=== PATIENT | female | born 1935 | race Caucasian/White ===

== ENCOUNTER 2019-01-18 11:51 | Emergency (ER) | payer MEDICARE, OTHER ==
[~2019-01-18] VITALS: Ht 160 cm; Wt 75.0 kg
[2019-01-18 11:56] VITALS: TEMP 96.6
[2019-01-18] MEDS ORDERED: CELEXA10 MG PO (12:08)
[2019-01-18] MEDS ORDERED: CELEBREX 1100 MG/CAP PO (12:09)
[2019-01-18] MEDS ORDERED: LIPITOR 80MG80 MG (12:09)
[2019-01-18 12:33] LABS: BASO # 0.1 (0.0-0.2); BASO % 0.3 % (0.0-2.0); EOS # 0.3 (0.0-0.7); EOS % 1.7 % (0-4.0); GRAN # 10.4 (1.4-6.5); GRAN % 72.8 % (42.2-75.2); HEMATOCRIT 43.1 % (37.0-47.0); HEMOGLOBIN 14.5 g/dl (12.5-16.0); LYMPH # 2.2 (1.2-3.4); LYMPH % 15.5 % (20.0-51.0); MEAN CELL VOLUME 90 fl (80.0-100.0); MEAN CORPUSCULAR HEMOGLOBIN 30 pg (27.0-31.0); MEAN CORPUSCULAR HGB CONC 34 g/dl (33.0-37.0); MEAN PLATELET VOLUME 8.9 fl (7.4-10.4); MONO # 1.4 (0.1-0.6); MONO % 9.4 % (1.7-9.3); PLATELET COUNT 302 K/mm3 (130-400); RED BLOOD COUNT 4.77 M/mm3 (4.10-5.30)
[2019-01-18 12:34] LABS: COLLECTION METHOD CLEAN CATCH
[2019-01-18 12:42] LABS: MUCOUS Present /lpf; PH 6 (5-8); URINE APPEARANCE Clear; URINE BACTERIA None Seen /hpf; URINE BILIRUBIN Negative (NEGATIVE); URINE BLOOD 1+ (NEGATIVE); URINE COLOR Yellow; URINE GLUCOSE Negative (NEGATIVE); URINE KETONE Negative (NEGATIVE); URINE LEUKOCYTE ESTERASE 1+ (NEGATIVE); URINE NITRATE Negative (NEGATIVE); URINE PROTEIN(semi-quant) Negative (NEGATIVE); URINE RBC 0-2 /hpf; URINE UROBILINOGEN Negative (NEGATIVE)
[2019-01-18 12:46] LABS: ALBUMIN 4.4 gm/dL (3.5-5.0); BILIRUBIN,TOTAL 1.1 mg/dL (0.0-1.0); C-REACTIVE PROTEIN 7.1 mg/dL (0.0-0.9); CALCIUM 9.4 mg/dL (8.4-10.2); CREATININE, serum 0.79 (0.52-1.25); POTASSIUM 4.1 mmol/L (3.4-5.0); TOTAL PROTEIN 7.8 gm/dL (6.4-8.2)
[2019-01-18] MEDS ORDERED: FLAGYL500 MG PO (14:08)
[2019-01-18] MEDS ORDERED: CIPRO 500MG TA500 MG PO (14:08)
[2019-01-18] MEDS ORDERED: ULTRAM 50MG TAB50 MG PO (14:16)
[2019-01-18 14:20] VITALS: BP 148/83; PULSE 64
== END 2019-01-18 14:22 | disposition home or self-care (01) ==
LOC: COL.ER 11:51
PROVIDERS: Emergency Medicine
DX: K52.9 Noninfective gastroenteritis and colitis, unspecified (principal); E78.5 Hyperlipidemia, unspecified
CPT/HCPCS: J7030; Q9967

== ENCOUNTER → 2020-06-02 | Outpatient (CLI) | payer MEDICARE, OTHER ==
[~2020-06-02] MED LIST: CELEBREX 1100 MG/CAP PO; CELEXA10 MG PO; CIPRO 500MG TA500 MG PO; FLAGYL500 MG PO; LIPITOR 80MG80 MG; ULTRAM 50MG TAB50 MG PO
== END ==
LOC: ZCOL.LAB 15:19
DX: Z20.828 Contact with and (suspected) exposure to other viral communicable diseases (principal)